=== PATIENT | male | born 1950 | race Caucasian/White ===

== ENCOUNTER 2019-05-15 13:49 | Observation (INO) | payer MEDICARE ==
[~2019-05-15] VITALS: Ht 162.6 cm; Wt 97.3 kg
[2019-05-15] MEDS ORDERED: ASPIRIN 325 MG TABLET PO ONE (14:15)
[2019-05-15 14:19] LABS: BASO # 0.1 x10^3/uL (0.0-0.2); BASO % 1 % (0-3); EOS # 0.1 x10^3/uL (0.0-0.7); EOS % 1 % (0-3); HEMATOCRIT 46.7 % (39.0-53.0); HEMOGLOBIN 15.2 g/dL (13.0-17.5); LYMPH # 1.3 x10^3/uL (1.0-4.8); LYMPH % 15 % (24-48); MEAN CORPUSCULAR HEMOGLOBIN 29 pg (25-35); MEAN CORPUSCULAR HGB CONC 33 g/dL (31-37); MEAN CORPUSCULAR VOLUME 88 fL (79-100); MONO # 0.7 x10^3/uL (0.0-1.1); MONO % 8 % (0-9); NEUT # 6.4 x10^3uL (1.8-7.7); NEUT % 75 % (31-73); PLATELET COUNT 218 x10^3/uL (140-400); RED BLOOD COUNT 5.32 x10^6/uL (4.30-5.70); RED CELL DISTRIBUTION WIDTH 13.6 % (11.5-14.5); WHITE BLOOD COUNT 8.5 x10^3/uL (4.0-11.0)
[2019-05-15 14:23] LABS: CALCIUM 8.5 mg/dL (8.5-10.1); CREATININE 0.9 mg/dL (0.7-1.3); GFR 83.4; POTASSIUM 4.5 mmol/L (3.5-5.1)
--- NOTE | 2019-05-15 14:25 | PHYS DOC ---
Past History Past Medical History: Asthma, GERD, Hypertension Past Surgical History: No Surgical History Smoking: Quit Greater Than 1 Year Alcohol Use: Occasionally Drug Use: None Adult General Chief Complaint Chief Complaint: CHEST PAIN HPI HPI Patient is a 68 year old male who presents with intermittent chest pain that has became more constant over the past 3 days. Patient states the pain has been present on and off for a number of weeks. Patient states the pain is left sided some radiation down his left upper extremities. He describes the pain as sharp in nature. He denies nausea, vomiting, and lightheadedness. He does admit to having some shortness of breath associated with the increased chest pain. He states that the pain does come and go but is unsure on how long it lasts when present. Denies trauma. Denies leg swelling or calf tenderness. Review of Systems Review of Systems Constitutional: Denies fever or chills Respiratory: Denies cough, admits shortness of breath Cardiovascular: Admits chest pain, denies palpitations GI: Denies abdominal pain, nausea, or vomiting Musculoskeletal: Denies leg swelling or calf tenderness Neurologic: Denies lightheadedness, admits generalized weakness Complete systems were reviewed and found to be within normal limits, except as documented in this note. Family History Family History Brother of MS at 55 years old Current Medications Current Medications Current Medications Medications (Trade) Dose Ordered Sig/Amelie Start Time Stop Time Status Last Admin Dose Admin Aspirin (Funmilayo Aspirin) 325 mg 1X ONCE 05/15/19 14:15 05/15/19 14:16 DC 05/15/19 14:17 325 MG Allergies Allergies Allergies Coded Allergies Type Severity Reaction Last Updated Verified No Known Drug Allergies 05/15/19 No Physical Exam Physical Exam Constitutional: Well developed, well nourished, no acute distress, non-toxic appearance HENT: Normocephalic, atraumatic, oropharynx moist Eyes: EOMI, conjunctiva normal, no discharge Neck: Normal range of motion, no tenderness, Cardiovascular: Heart rate normal, regular rhythm Lungs & Thorax: Bilateral breath sounds clear to auscultation, no wheezing Abdomen: Soft, no tenderness, bowel sounds present Skin: Warm, dry, no erythema, no rash Extremities: No tenderness, ROM intact, trace edema in bilateral lower extremities Neurologic: Alert and oriented X 3, normal motor function, normal sensory function, no focal deficits noted Psychologic: Affect normal, judgment normal Current Patient Data Vital Signs Vital Signs Date Time Temp Pulse Resp B/P (MAP) Pulse Ox O2 Delivery O2 Flow Rate FiO2 05/15/19 13:51 97.9 66 16 175/102 (126) 97 Room Air Lab Results Laboratory Tests Test 05/15/19 13:55 White Blood Count 8.5 x10^3/uL (4.0-11.0) Red Blood Count 5.32 x10^6/uL (4.30-5.70) Hemoglobin 15.2 g/dL (13.0-17.5) Hematocrit 46.7 % (39.0-53.0) Mean Corpuscular Volume 88 fL (79-100) Mean Corpuscular Hemoglobin 29 pg (25-35) Mean Corpuscular Hemoglobin Concent 33 g/dL (31-37) Red Cell Distribution Width 13.6 % (11.5-14.5) Platelet Count 218 x10^3/uL (140-400) Neutrophils (%) (Auto) 75 % (31-73) H Lymphocytes (%) (Auto) 15 % (24-48) L Monocytes (%) (Auto) 8 % (0-9) Eosinophils (%) (Auto) 1 % (0-3) Basophils (%) (Auto) 1 % (0-3) Neutrophils # (Auto) 6.4 x10^3uL (1.8-7.7) Lymphocytes # (Auto) 1.3 x10^3/uL (1.0-4.8) Monocytes # (Auto) 0.7 x10^3/uL (0.0-1.1) Eosinophils # (Auto) 0.1 x10^3/uL (0.0-0.7) Basophils # (Auto) 0.1 x10^3/uL (0.0-0.2) EKG EKG At 1357 Normal sinus rhythm with a rate of 66 bpm, prolonged DE interval consistent with first-degree block No sign of acute STEMI Radiology/Procedures Radiology/Procedures PROCEDURE: CHEST PA & LATERAL EXAM: Chest, 2 views. HISTORY: Chest pain. COMPARISON: None. FINDINGS: 2 views of the chest are obtained. There is no infiltrate, pleural effusion or pneumothorax. The heart is normal in size. IMPRESSION: No acute pulmonary finding. Course & Med Decision Making Course & Med Decision Making Pertinent Labs and Imaging studies reviewed. Patient with significant cardiac risk factors presents with report of chest pain. EKG stable. Labs obtained and posted to chart. Initial troponin within normal limits HEART score 5. Chest x-ray stable. Patient requiring observation admission for further evaluation and treatment. Discussed with Dr. Stout (hospitalist) who is in agreement with admission. Discussed findings and plan with patient and family, who acknowledge understanding and agreement. Dragon Disclaimer Dragon Disclaimer This electronic medical record was generated, in whole or in part, using a voice recognition dictation system. Departure Departure: Impression: Primary Impression: Chest pain Disposition: ADMITTED INPATIENT Admitting Physician: Celi Stout Condition: STABLE Referrals: THERON KATHLEEN MD (PCP) HEART Score for Chest Pain PTs The HEART Score for CP Pts HEART Score for Chest Pain: HEART Score for Chest Pain Response (Comments) Value History Moderately Suspicious 1 ECG Normal 0 Age > 65 2 Risk Factors >3 Risk Factors or Hx CAD 2 Troponin < Normal Limit 0 Total 5 Risk Factors: Risk Factors: DM, Current or recent (<one month) smoker, HTN, HLP, family history of CAD, obesity. Risk Scores: Score 0 - 3: 2.5% MACE over next 6 weeks - Discharge Home Score 4 - 6: 20.3% MACE over next 6 weeks - Admit for Clinical Observation Score 7 - 10: 72.7% MACE over next 6 weeks - Early Invasive Strategies Problem Qualifiers Primary Impression: Chest pain Chest pain type: unspecified Qualified Codes: R07.9 - Chest pain, unspecified ANATOLIY WAKEFIELD DO May 15, 2019 14:25
[2019-05-15 14:40] LABS: ALBUMIN 3.7 g/dL (3.4-5.0); ALBUMIN/GLOBULIN RATIO 1.3 (1.0-1.7); TOTAL BILIRUBIN 0.4 mg/dL (0.2-1.0); TOTAL PROTEIN 6.6 g/dL (6.4-8.2)
--- NOTE | 2019-05-15 14:41 | RAD ---
EXAM: Chest, 2 views. HISTORY: Chest pain. COMPARISON: None. FINDINGS: 2 views of the chest are obtained. There is no infiltrate, pleural effusion or pneumothorax. The heart is normal in size. IMPRESSION: No acute pulmonary finding. Electronically signed by: Tiffanie Echavarria MD (05/15/2019 2:38 PM) [facility] [place]
[2019-05-15] MEDS ORDERED: ONDANSETRON PF 4 MG/2 ML VIAL. IV PRN (14:45)
[2019-05-15 15:42] VITALS: BP 164/87
[2019-05-15] MEDS ORDERED: hydrALAZINE 20 MG/ML VIAL. IV PRN (16:30)
[2019-05-15] MEDS ORDERED: LISINOPRIL 5 MG TABLET. PO ONE (16:45)
[2019-05-15] MEDS ORDERED: ISOSORBIDE MONONITRATE ER 30 MG TAB.ER.24H PO ONE (16:45)
[2019-05-15] MEDS ORDERED: CARV12.547 PO (17:00)
[2019-05-15] MEDS ORDERED: OMEP20CA16 PO (17:00)
--- NOTE | 2019-05-15 18:38 | CONS ---
DATE OF CONSULTATION: 05/15/2019 REASON FOR CONSULTATION: Chest pain. HISTORY OF PRESENT ILLNESS: The patient is a pleasant 68-year-old man with past medical history of gastroesophageal reflux disease, tobacco abuse, who presented with several days of hypertension and some chest discomfort. He does not have any chest pain with activity. He denies any associated dyspnea with the chest discomfort. No nausea, diarrhea, fevers or chills. No recent coughs or sick contacts. He checked his blood pressure at [facility] recently when he was filling his prescriptions, was noted to have an elevated blood pressure 180/80 and this was also confirmed at his primary care physician's office. He denies any other acute issues. At home, while he has been ambulating and going up and down stairs, he does not have any reproducible chest pain. PAST MEDICAL HISTORY: As noted above. SOCIAL HISTORY: No tobacco or illicit drug use. He is a barros. He does consume alcohol socially on the weekends. FAMILY HISTORY: Notable for a brother who had a massive MO at the age of 55. ALLERGIES: No known drug allergies. CURRENT CARDIOVASCULAR MEDICATIONS: Include omeprazole and carvedilol. REVIEW OF SYSTEMS: Negative for 01/21 systems reviewed, unless otherwise mentioned above in HPI. PHYSICAL EXAMINATION: VITAL SIGNS: Afebrile, 66, 20, 164/87, 95% on room air. GENERAL: He is alert and oriented, no acute distress. HEAD AND NECK: Unremarkable. CARDIAC: Regular rate and rhythm without murmurs, rubs or gallops. LUNGS: Clear to auscultation bilaterally. ABDOMEN: Soft, nontender, obese, nondistended. EXTREMITIES: No clubbing, cyanosis or edema with 2+ radial and dorsalis pedis pulses. NEUROLOGIC: No focal deficits. MUSCULOSKELETAL: No trauma. DIAGNOSTIC STUDIES: Initial enzymes are within normal limits. Hemoglobin and platelets are within normal limits. EKG reveals sinus rhythm without any acute pathology. Creatinine is within normal limits. BNP is within normal limits. Chest x-ray is grossly unremarkable. IMPRESSION: Atypical chest pain in an elderly male with multiple risk factors including presumed uncontrolled hypertension and tobacco abuse in the past. RECOMMENDATIONS: Agree with serial enzymes and if no acute abnormalities and no recurrent chest pain with titration of antihypertensives, he may be discharged safely tomorrow for plans for an outpatient stress test. Thank you for this consultation. ALLY PAIZ MD DR: Debbie JOB#: [id number] / [id number]
--- NOTE | 2019-05-15 18:38 | EKG ---
[address] [address] Test Date: 2019-05-15 Test Time: 13:57:27 Pat Name: OLGA LIDIA BELLO Department: Room: Gender: M Field Organizer: : 1950 Requested By: ANATOLIY WAKEFIELD Order Number: [id number] Reading MD: Measurements Intervals Edna Rate: 66 P: SD: QRS: 6 QRSD: 78 T: 26 QT: 382 QTc: 402 Interpretive Statements IRREGULAR RHYTHM, NO P-WAVE FOUND NO SPECIFIC ECG ABNORMALITIES RI6.01 No previous ECG available for comparison
[2019-05-15 19:44] VITALS: BP 111/70
[2019-05-15 22:46] VITALS: BP 107/67
[2019-05-16 06:37] VITALS: BP 101/63
--- NOTE | 2019-05-16 08:02 | PDOC ---
CARDIO Progress Notes Date & Time Date of Service DATE: 05/16/19 TIME: 07:57 Time of Evaluation 07:57 Subjective Notes No chest pain, palpitations, dizziness, diaphoresis or nausea/vomiting. Vitals Vitals Vital Signs Date Time Temp Pulse Resp B/P (MAP) Pulse Ox O2 Delivery O2 Flow Rate FiO2 05/16/19 06:37 97.9 69 18 101/63 (76) 95 Room Air Weight Weight [ ] Input and Output I.O. Intake and Output 05/16/19 07:00 Intake Total 240 ml Output Total 1 ml Balance 239 ml Intake Oral 240 ml Output Urine Total 1 ml Laboratory Labs Laboratory Tests Test 05/15/19 13:55 05/15/19 14:29 05/15/19 17:15 05/15/19 20:40 White Blood Count 8.5 x10^3/uL (4.0-11.0) Red Blood Count 5.32 x10^6/uL (4.30-5.70) Hemoglobin 15.2 g/dL (13.0-17.5) Hematocrit 46.7 % (39.0-53.0) Mean Corpuscular Volume 88 fL (79-100) Mean Corpuscular Hemoglobin 29 pg (25-35) Mean Corpuscular Hemoglobin Concent 33 g/dL (31-37) Red Cell Distribution Width 13.6 % (11.5-14.5) Platelet Count 218 x10^3/uL (140-400) Neutrophils (%) (Auto) 75 % (31-73) Lymphocytes (%) (Auto) 15 % (24-48) Monocytes (%) (Auto) 8 % (0-9) Eosinophils (%) (Auto) 1 % (0-3) Basophils (%) (Auto) 1 % (0-3) Neutrophils # (Auto) 6.4 x10^3uL (1.8-7.7) Lymphocytes # (Auto) 1.3 x10^3/uL (1.0-4.8) Monocytes # (Auto) 0.7 x10^3/uL (0.0-1.1) Eosinophils # (Auto) 0.1 x10^3/uL (0.0-0.7) Basophils # (Auto) 0.1 x10^3/uL (0.0-0.2) Sodium Level 142 mmol/L (136-145) Potassium Level 4.5 mmol/L (3.5-5.1) Chloride Level 105 mmol/L (98-107) Carbon Dioxide Level 27 mmol/L (21-32) Anion Gap 10 (6-14) Blood Urea Nitrogen 19 mg/dL (8-26) Creatinine 0.9 mg/dL (0.7-1.3) Estimated GFR (Cockcroft-Gault) 83.4 BUN/Creatinine Ratio 21 (6-20) Glucose Level 105 mg/dL (70-99) Calcium Level 8.5 mg/dL (8.5-10.1) Magnesium Level 2.0 mg/dL (1.8-2.4) Total Bilirubin 0.4 mg/dL (0.2-1.0) Aspartate Amino Transf (AST/SGOT) 29 U/L (15-37) Alanine Aminotransferase (ALT/SGPT) 31 U/L (16-63) Alkaline Phosphatase 93 U/L (46-116) Creatine Kinase 75 U/L (39-308) Creatine Kinase MB (Mass) 1.0 ng/mL (0.0-3.6) Creatine Kinase MB Relative Index 1.3 % (0-4) Troponin I Quantitative < 0.017 ng/mL (0-0.055) < 0.017 ng/mL (0-0.055) < 0.017 ng/mL (0-0.055) NG-Gch-A-Type Natriuretic Peptide 270 pg/mL (0-124) Total Protein 6.6 g/dL (6.4-8.2) Albumin 3.7 g/dL (3.4-5.0) Albumin/Globulin Ratio 1.3 (1.0-1.7) Lipase 89 U/L (73-393) Prothrombin Time 9.8 SEC (9.4-11.4) Prothromb Time International Ratio 0.9 (0.9-1.1) Activated Partial Thromboplast Time 25 SEC (23-33) Physical Exams HEENT: Neck Supple W Full Motion Chest: Symmetric Lungs: Clear to Auscultation Heart: S1S2, RRR Abdomen: Soft N/T Extremities: No Edema Neurology: alert, oriented, follow commands Assessment Assessment 1. Chest pain, atypical. AMI ruled out 2. Hypertension 3. GERD 4. Tobaccoism; in remission Recommendations ASA lipids panel- statin if indicated Continue lisinopril Will discontinue imdur due to hypotension May discharge from a CV standpoint Will arrange outpatient MPI and follow up with HELEN Ramirez APRN May 16, 2019 08:02
[2019-05-16] MEDS: ASPIRIN ENTERIC COATED 81 MG TABLET.DR. PO SCH ×2 (08:09→08:12)
[2019-05-16] MEDS ORDERED: ISOSORBIDE MONONITRATE ER 30 MG TAB.ER.24H PO SCH (09:00)
[2019-05-16] MEDS ORDERED: LISINOPRIL 10 MG TABLET PO SCH (09:00)
[2019-05-16 10:44] VITALS: BP 122/69
[2019-05-16] MEDS ORDERED: LISI10TA2 PO (13:06)
--- NOTE | 2019-05-16 13:23 | HP ---
ADMIT DATE: 05/15/2019 HISTORY OF PRESENT ILLNESS: The patient is a 68-year-old male patient who came to the Emergency Room complaining of intermittent chest pain that has become more constant over the last 3 days. He states the pain has been present on and off for a number of weeks. The patient states that the pain is left sided some radiation down to his left upper extremity. He describes the pain as sharp in nature. Denied any nausea, vomiting, or lightheadedness. He does admit having some shortness of breath with associated chest pain, has also had episodes of diaphoresis. He stated that the pain does come and go but is unsure how long it lasts. He is not particularly associated with exertion, can happen even when he was sitting. He was extensively investigated in the Emergency Room and has had lab work done and other investigation. His EKG showed that he was in sinus rhythm at a rate of 66 beats per minute with prolonged PA interval consistent with first-degree heart block, but no ST segment elevation myocardial infarction. His chest x-ray showed no acute pulmonary finding. His labs showed that his first set of cardiac enzyme was less than 0.017 and therefore, the patient was admitted to do 2 more sets of cardiac enzymes, check his fasting lipid profile and consult the cardiology team. PAST MEDICAL HISTORY: Significant for hypertension, bronchial asthma, and benign prostatic hypertrophy. PAST SURGICAL HISTORY: Significant for tonsillectomy and transurethral resection of the prostate. ALLERGIES: He has no known drug allergies. MEDICATIONS: He is currently on following medications: He is on carvedilol 12.5 mg twice a day and omeprazole 20 mg twice a day for his gastroesophageal reflux disease. FAMILY HISTORY: He has one brother who had a massive heart attack and at the age of 55. Father at age of 81 and mother at the age of 95. SOCIAL HISTORY: He is , has a son and a daughter. He quit smoking about 11 years ago. Drinks alcohol, mostly on the weekend, he drinks mostly [place] and Coke, although he drinks beer occasionally. Does not use any drugs. 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 REVIEW OF SYSTEMS: The patient denied any blurring of vision, cataract, glaucoma or macular degeneration. Denied any earache, tinnitus or sensorineural deafness. Denied any nosebleeds, stuffy nose or postnasal drip. Denied any sore throat, sore tongue, toothache, hoarseness of voice or difficulty swallowing. Denied any nausea, vomiting, diarrhea or constipation. Denied any hematemesis, melena or hematochezia. Denied any dysuria, frequency or hematuria. Did complain of chest pain and shortness of breath. Denied any orthopnea or paroxysmal nocturnal dyspnea. Denied any cough, phlegm or hemoptysis. Denied any chills, rigors, or fever. Denied any dizziness, lightheadedness, or vertigo. PHYSICAL EXAMINATION: GENERAL: On arrival to the Emergency Room, he looked well and was clearly in no apparent respiratory distress. No pallor, jaundice, cyanosis or thyromegaly. No jugular venous distention or limb edema. VITAL SIGNS: His heart rate was 66, blood pressure 175/102, temperature 97.6, respiratory rate was 16, and oxygen saturation was 97%. HEAD, EYES, EARS, NOSE AND THROAT: Showed normocephalic, atraumatic. NECK: Supple. HEART: Normal first and second heart sounds. No gallop or murmur. CHEST: Shows central trachea, equal bilateral chest expansion and air entry, vesicular breath sounds. No crepitation or rhonchi. ABDOMEN: Markedly distended, soft, nontender. NEUROLOGIC: He was grossly intact. LABORATORY DATA: His lab work on admission showed a white cell count of 8500, hemoglobin 15, hematocrit 46, MCV 88 and a platelet count of 218,000. His chemistry showed a serum sodium 142, potassium 4.5, chloride 105, bicarbonate 27, anion gap of 10, BUN 19, creatinine 0.9, estimated GFR was 83 mL per minute, his glucose 105, calcium was 8.5, and magnesium 2. Total bilirubin, AST, ALT, alkaline phosphatase were normal. Total protein was 6.6, albumin 3.7. Lipase was 89. His first set of cardiac enzymes showed troponin to be less than 0.017. His prothrombin time, INR and aPTT are normal. His chest x-ray showed that there is no infiltrate, pleural effusion, or pneumothorax. Heart size is normal, and therefore, the patient was admitted to do 2 more sets of cardiac enzyme and to check his fasting lipid profile and consult the cardiology team. AALIYAH MAURER MD DR: SANJU/clarita JOB#: [id number] / [id number]
--- NOTE | 2019-05-16 14:13 | DS ---
DATE OF DISCHARGE: 05/16/2019 HOSPITAL COURSE: The patient was admitted yesterday for somewhat atypical intermittent chest pain that is not related to exertion and has had an EKG, which was unrevealing. He was in fact in sinus rhythm with first-degree heart block with no ST segment elevation. His first set of cardiac enzyme was less than 0.017. He has 2 more sets of cardiac enzymes that ruled out myocardial infarction. He was in fact seen by the supervisor shipping room and basically recommended to be discharged with an arrangement for an outpatient nuclear stress test with Dr. Sands. PHYSICAL EXAMINATION: GENERAL: When I saw him this afternoon, he looked well and was clearly in no apparent respiratory distress. No pallor, jaundice, cyanosis or thyromegaly. No jugular venous distention. No limb edema. VITAL SIGNS: His heart rate was 63, blood pressure was 122/69, temperature 97.5, respiratory rate 20, and oxygen saturation was 94%. The rest of the exam is stable. LABORATORY DATA: He has 3 sets of cardiac enzymes that ruled out myocardial infarction. His fasting lipid profile is still pending at the time of this dictation. DISCHARGE MEDICATIONS: He was discharged home to continue lisinopril 10 mg once a day, aspirin 81 mg once a day, hydralazine DICTATION ENDS HERE AALIYAH MAURER MD DR: SANJU/clarita JOB#: [id number] / [id number]
== END 2019-05-16 13:21 | disposition home or self-care (01) ==
LOC: ER 13:49 → 1 SOUTH 14:34 → INTOOBSV 14:34
PROVIDERS: ADMIT Internal Medicine; ATTEND Internal Medicine
DX: R07.89 Other chest pain (principal); I10 Essential (primary) hypertension; K21.9 Gastro-esophageal reflux disease without esophagitis; J45.909 Unspecified asthma, uncomplicated; Z79.899 Other long term (current) drug therapy; Z87.891 Personal history of nicotine dependence
CPT/HCPCS: 36415; 71046; 80053; 80061; 82553; 83690; 83735; 83880; 84484; 85025; 85610; 85730; 93005; 99284; G0378; G0379; 99285-25

== ENCOUNTER → 2020-03-31 | Outpatient (CLI) | payer MEDICARE ==
[~2020-03-31] MED LIST: CARV12.547 PO; LISI10TA2 PO; OMEP20CA16 PO
--- NOTE | 2020-03-31 11:43 | RAD ---
MR#: [id number] Date of Study: 03/31/2020 Ordering Physician: ALLY PAIZ, Referring Physician: ALLY PAIZ, Tech: APPROVED REPORT Patient Location: OUT-PATIENT Indications The proximal abdominal aorta is not well-visualized due to bowel gas interference. The mid and distal abdominal aorta are grossly within normal limits with measurements of 1.7 and 1.8 respectively. Velocities are within normal limits. No significant plaque is noted. No evidence of abdominal aortic aneurysm. Duplex Results A/PTransverseLongitudinal Mid Aorta 1.7cm1.7cm Distal Aorta 1.3cm1.8cm Doppler VelocityWaveform Aorta Mid. 93.0 cm/secTriphasic Distal Aorta 102.6 cm/secTriphasic Critical Notification Critical Value: No <Conclusion> 1. No significant evidence of abdominal aortic aneurysm although the images are limited due to bowel gas interference Signed by : Ally Paiz, Electronically Approved : 03/31/2020 11:43:33
--- NOTE | 2020-03-31 18:09 | CARD ---
MR#: [id number] Date of Study: 03/31/2020 Ordering Physician: ALLY SANDS, Referring Physician: ALLY SANDS, Tech: Arcelia Vitale APPROVED REPORT EXAM: Two-dimensional and M-mode echocardiogram with Doppler and color Doppler. Other Information Quality : AverageHR: 65bpm INDICATION Hypertension/HCVD RISK FACTORS Hyperlipidemia Asthma 2D DIMENSIONS RVDd3.2 (2.9-3.5cm)Left Atrium(2D)3.2 (1.6-4.0cm) IVSd1.0 (0.7-1.1cm)Aortic Root(2D)3.6 (2.0-3.7cm) LVDd4.6 (3.9-5.9cm)LVOT Diameter2.2 (1.8-2.4cm) PWd0.9 (0.7-1.1cm)LVDs3.3 (2.5-4.0cm) FS (%) 27.9 %SV53.7 ml LVEF(%)54.1 (>50%) Aortic Valve AoV Peak Alvaro.104.6cm/sAoV VTI21.3cm AO Peak GR.4.4mmHgLVOT Peak Alvaro.94.0cm/s LVOT VTI 22.26cmAO Mean GR.2mmHg NAHUM (VMAX)3.75al9CDZ (VTI)3.93cm2 AI P 1/2 [id number] Mitral Valve MV E Yoxriaef51.0cm/sMV E Peak Gr.2mmHg MV DECEL [id number] A Zpinoztw62.3cm/s MV E Mean Gr.1mmHgE/A Ratio1.1 Pulmonary Valve PV Peak Oyffcesm43.1cm/sPV Peak Grad.2mmHg Pulmonary Vein S1 Suwwcpvy63.8cm/sD2 Amfxaimp48.6cm/s LEFT VENTRICLE The left ventricle is normal size. There is normal left ventricular wall thickness. The left ventricu lar systolic function is normal and the ejection fraction is within normal range. The Ejection Fracti on is 50-55%. There is normal LV segmental wall motion. Transmitral Doppler flow pattern is Grade II- pseudonormal filling dynamics. RIGHT VENTRICLE The right ventricle is mildly dilated. There is normal right ventricular wall thickness. The right ve ntricular systolic function is normal. ATRIA The left atrium size is normal. The right atrium size is normal. The interatrial septum is intact wit h no evidence for an atrial septal defect or patent foramen ovale as noted on 2-D or Doppler imaging. AORTIC VALVE The aortic valve is thickened but opens well. Doppler and Color Flow revealed trace aortic regurgitat ion. There is no significant aortic valvular stenosis. Calculated aortic valve area is 3.9 cm2 with m aximum pressure gradient of 5 mmHg and mean pressure gradient of 3 mmHg. MITRAL VALVE The mitral valve is normal in structure and function. There is no evidence of mitral valve prolapse. There is no mitral valve stenosis. Doppler and Color Flow revealed no mitral valve regurgitation note d. TRICUSPID VALVE The tricuspid valve is normal in structure and function. Doppler and Color Flow revealed no tricuspid valve regurgitation noted. There is no tricuspid valve stenosis. PULMONIC VALVE The pulmonic valve is not well visualized. Doppler and Color Flow revealed trace pulmonic valvular re gurgitation. There is no pulmonic valvular stenosis. GREAT VESSELS The aortic root is normal in size. The IVC was not well visualized. PERICARDIAL EFFUSION There is no evidence of significant pericardial effusion. Critical Notification Critical Value: No <Conclusion> The left ventricular systolic function is normal and the ejection fraction is within normal range. Th e Ejection Fraction is 50-55%. There is normal LV segmental wall motion. Signed by : Ally Sands, Electronically Approved : 03/31/2020 18:09:13
== END ==
LOC: ECHO 08:44
PROVIDERS: ATTEND Internal Medicine Cardiovascular Disease
DX: I10 Essential (primary) hypertension (principal); Z72.0 Tobacco use
CPT/HCPCS: 76770; 93306